=== PATIENT | female | born 1955 | race Caucasian/White ===

== ENCOUNTER 2019-08-21 13:46 | Outpatient (CLI) | payer MEDICAID | END 2019-08-21 13:47 | disposition home or self-care (01) | LOC: ULT 13:46 | PROVIDERS: ATTEND Internal Medicine Hematology & Oncology | DX: Z51.11 Encounter for antineoplastic chemotherapy (principal); C50.112 Malignant neoplasm of central portion of left female breast | CPT/HCPCS: 93306 ==

== ENCOUNTER 2019-08-27 12:41 | Outpatient (CLI) | payer MEDICAID ==
--- NOTE | 2019-08-27 15:07 | PET ---
PET CT: HISTORY: Left breast cancer. TECHNIQUE: PET scanning with CT attenuation correction was performed from the base of the brain to the proximal thighs following the intravenous administration of 10.5 millicuries [id number]. COMPARISON: CT of the abdomen and pelvis dated May 08, 2018. No additional relevant comparison is available. FINDINGS: Biodistribution:There is some mild uptake seen within the musculature of the proximal appendicular sk eleton and torso. This is likely related to muscular activity. The biodistribution is acceptable for the current examination. Head and neck: There is appropriate background activity within the brain. No hypermetabolic lymphaden opathy or masses identified. Thorax: There is a large hypermetabolic mass involving the upper inner aspect of the left breast with a peak SUV uptake of 5.81 and a mean activity of 5.08. There is a 7 mm rounded lesion in the inferior outer aspect of the left breast with no associated hypermetabolic uptake. There are numerous mildly prominent lymph nodes within the left axillary region with only mild radiotracer uptake of approximately 1.55. No hypermetabolic supraclavicular lymph node is seen. No hypermetabolic lymph nod e is seen within the right axillary region. There is mild increased skin radiotracer uptake seen involving the left breast with skin thickening. There is scattered emphysema. No hypermetabolic pulmo nary nodule or pleural effusion is evident. There is a sub-4 mm pulmonary nodule left lower lobe which has been stable since the May 08, 2018 exam. No hypermetabolic mediastinal lymph node is note d. Abdomen and pelvis: There is expected background activity within the GI and systems.There is an il l-defined hypodense mass within the superior aspect of the medial left hepatic lobe that demonstrates a peak activity of 3.47 and a mean activity of 3.38. No additional focal hepatic lesion is evident. No hypermetabolic ascites or lymphadenopathy is evident. Osseous structures and skin: There is a mixed sclerotic and lytic lesion involving the left iliac win g measuring 1.7 cm with a peak SUV activity of 2.5 and a mean activity 2.15. There are numerous additional new small sclerotic lesions involving the thoracolumbar spine consistent with sclerotic os seous metastatic lesions. One of the more prominent is seen within the left aspect of T5 measuring 7 mm with a peak activity of 2.77. Prominent sclerotic hypermetabolic lesion seen within the right C1 articular pillar with a peak activity of 3.65 and a mean activity of 3.12. Mild uptake is seen within the region of the left breast skin measuring up to 1.92 . There are chronic appearing compress ion abnormalities involving L4, L2 and L1. There is age indeterminate mild wedge compression fracture of T10. IMPRESSION: Abnormal PET scan. 1. Large hypermetabolic mass involving the left breast with mild increased uptake and thickening over lying left breast skin consistent with inflammatory breast cancer. There is an additional smaller 7 mm rounded nodule in the inferior outer aspect of the left breast with no associated hypermetabolic u ptake; however, this is below PET resolution threshold. Recommend correlation with a prior left breast diagnostic evaluation for an additional lesion. This would make this a multicentric breast les ion. 2. Malignant lymphadenopathy of the left axilla. 3. Hypermetabolic osseous metastatic disease involving the cervical, thoracic and lumbar spine as wel l as the left iliac wing. 4. Hypermetabolic hypodense mass involving the superior aspect of the left medial hepatic lobe. This is not well-defined on the current PET CT due to motion artifact. Would recommend a dedicated CT of the abdomen with and without contrast utilizing liver mass protocol for better characterization of th is mass lesion. 5. Chronic appearing wedge compression abnormalities of L4, L2 and L1. Age indeterminate T10 wedge co mpression abnormality. No overt hypermetabolic uptake is evident within the T10 vertebral compression abnormality. Would recommend a bone scan to evaluate for acuity of this compression abnor mality. Transcribed Date/Time: 08/27/2019 3:24 PM
== END 2019-08-27 12:42 | disposition home or self-care (01) ==
LOC: PET 12:41
PROVIDERS: ATTEND Internal Medicine Hematology & Oncology
DX: C50.112 Malignant neoplasm of central portion of left female breast (principal); C77.3 Secondary and unspecified malignant neoplasm of axilla and upper limb lymph nodes; C79.51 Secondary malignant neoplasm of bone
CPT/HCPCS: 78815; A9552

== ENCOUNTER 2019-11-27 08:21 | Outpatient (CLI) | payer OTHER ==
--- NOTE | 2019-11-27 12:04 | PET ---
PET CT: HISTORY: 64-year-old female with malignant neoplasm of central portion of the left female breast with secondar y malignant neoplasm of bone. Patient is undergoing chemotherapy. Exam is requested to evaluate for r esponse to treatment. TECHNIQUE: PET scanning with CT attenuation correction is performed from the base of the brain through the proxi mal thighs following the intravenous administration of 11.7 mCi [id number] in the right antecubital giovanny a. COMPARISON: PET CT of 08/27/2019. FINDINGS: There is focally increased uptake in the left breast mass noted on the previous exam with a SUV of 3. 8 (previously 5.8). No abdulkadir hypermetabolism is seen in the neck, chest, axilla, abdomen, or pelvis. No hypermetabolic pulmonary nodules, adrenal, or skeletal lesions are seen. There has been interval r esolution of the previously noted hypermetabolic osseous lesions including the left iliac wing which has a current SUV of 1.9 (previously 2.5). A focally increased uptake in the dome of the left lobe of the liver is again noted with increased up take and SUV of 5.3 (previously 3.5). There is physiologic activity in the GI and tracts, heart, and visualized portions of the brain. The CT scan used for attenuation correction demonstrates no evidence of pleural effusions or ascites. Multiple small sclerotic lesions in thoracolumbar spine are again seen. IMPRESSION: Mixed response to therapy since 08/27/2019. POS: [facility]
== END 2019-11-27 08:22 | disposition home or self-care (01) ==
LOC: PET 08:21
PROVIDERS: ATTEND Internal Medicine Hematology & Oncology
DX: C50.112 Malignant neoplasm of central portion of left female breast (principal); C79.51 Secondary malignant neoplasm of bone
CPT/HCPCS: 78815; A9552

== ENCOUNTER 2020-04-20 09:30 | Outpatient (CLI) | payer OTHER ==
[~2020-04-20 09:30] MED LIST: Iopamidol 370 76% 100 ML VIAL ONE
--- NOTE | 2020-04-20 12:10 | CT ---
CT CHEST WITH IV CONTRAST CT ABDOMEN WITH IV CONTRAST CT PELVIS WITH IV CONTRAST: HISTORY: Malignant of a central portion of the left female breast. Secondary malignant neoplasm of bone. COMPARISON: CT abdomen and pelvis without contrast dated 05/08/2018. FINDINGS: There are vascular calcifications without evidence of aneurysmal dilatation of the thoracoabdominal a jeri. No mediastinal, hilar, or axillary mass or lymphadenopathy seen. No pericardial effusion is n oted. There are moderate-sized bilateral pleural effusions with adjacent atelectatic changes. No arjun ng nodules or masses are identified. There is scarring in the lung apices. Numerous low-density lesions are seen in the liver. The spleen, pancreas, adrenal glands, and left k idney are normal. There is a tiny nonobstructing right renal calculus. There is a moderate amount of free fluid in the abdomen and pelvis consistent with ascites. The smal l bowel loops are not abnormally dilated. Uterus is present. Numerous sclerotic lesions are seen in the skeleton. IMPRESSION: 1. Bilateral moderate pleural effusions. 2. Hepatic and osseous metastatic disease. 3. Ascites. POS: [facility]
--- NOTE | 2020-04-20 14:03 | NM ---
Radionucleotide bone scan HISTORY: Malignant neoplasm of central portion of the left female breast. Bone metastases. FINDINGS: Heterogeneous uptake throughout the skeleton. The most focal areas of increased uptake involves the vertebral bodies at the T5, T7, T10, and T11 le vels, where sclerotic metastases were seen on recent CT exam. Small focus of at uptake involves the right lateral pelvic supra-acetabular cortex. Focal abnormality also involves the the far lateral mar gin of the right 10th rib. IMPRESSION : Osseous metastases are visible scintigraphically at the thoracic spine, right pelvis, and a right 10t h rib.
== END 2020-04-20 09:31 | disposition home or self-care (01) ==
LOC: CT 09:30 → NM 09:31
PROVIDERS: ATTEND Internal Medicine Hematology & Oncology
DX: C50.112 Malignant neoplasm of central portion of left female breast (principal); C22.9 Malignant neoplasm of liver, not specified as primary or secondary; C79.51 Secondary malignant neoplasm of bone; R97.1 Elevated cancer antigen 125 [CA 125]; R94.5 Abnormal results of liver function studies; J90 Pleural effusion, not elsewhere classified; R18.8 Other ascites
CPT/HCPCS: 71260; 74177; 78306; A9503; Q9967